=== PATIENT | female | born 1990 | race Caucasian/White ===

== ENCOUNTER → 2020-03-10 11:12 | Outpatient (BNVA) | payer OTHER, SELFPAY | PROVIDERS: Family Provider Nurse Practitioner Family; PCP Nurse Practitioner Family; Visit Provider Nurse Practitioner Family | DX: Z20.828 Contact with and (suspected) exposure to other viral communicable diseases (principal) | CPT/HCPCS: 87635 ==

== ENCOUNTER 2021-01-18 18:28 | Emergency (ER) | payer SELFPAY ==
[2021-01-18 18:32] VITALS: BP 161/99; PULSE 85; RESP 24; TEMP 36.7; O2SAT 100; BMI 47.5
--- NOTE | 2021-01-18 18:36 | W.ED.ABDPA2 ---
Documented by User: [email or web address] 01/18/21 20:59 HPI - Abdominal Pain General: Chief Complaint: Abdominal Pain Stated Complaint: Sever ABD Pain Time Seen by Provider: 01/18/21 18:36 History of Present Illness: HPI narrative: 30-year-old female comes in today with pain to the left flank starting yesterday. Patient reports no injury but does do a lot of lifting at her job. Patient does report a history of renal calculi. Patient appears well. Patient appears in moderate pain. Patient reports being on her menstrual cycle at this time, denies any fever, denies any nausea or vomiting. Related Data: Date of Last Menstrual Period: 01/18/21 Review of Systems General: Reports: 10 or more systems reviewed and unremarkable except in HPI and below : Reports: flank pain [facility] ED Female Reproductive History: Date of last menstrual period: 01/18/21 Physical Exam Const: COMMON NORMALS: no acute distress and patient oriented x3 GENERAL APPEARANCE: cooperative HENMT: COMMON NORMALS: normocephalic and Normal external nose present HEAD & SCALP: normal to inspection and normocephalic NOSE: Normal external nose present MOUTH: Normal oral and palatal mucosa present Eye: GENERAL EYE: appearance normal, both eyes and all related structures Neck/C-Spine: COMMON NORMALS: full ROM Chest: COMMONS NORMALS: normal inspection of the chest Resp: COMMON NORMALS: normal respiratory effort EFFORT & INSPECTION: Yes able to speak in complete sentences Cardio: COMMON NORMALS: regular rate and regular rhythm RATE: regular rate RHYTHM: regular rhythm GI: COMMON NORMALS: non-tender : BLADDER/KIDNEY EXAM: Yes CVA tenderness on the left Back/Pelvis: GENERAL BACK: Yes CVA tenderness THORACIC SPINE/UPPER BACK: Yes normal to inspection LUMBAR SPINE/LOWER BACK: Yes paraspinal muscle tenderness Lumbar paraspinal muscle tenderness: left left lumbar paraspinal muscle tenderness: L2 and L3 Extremity: COMMON NORMALS: normal to inspection Neuro: COMMON NORMALS: patient oriented x3 and moves all extremities Psych: COMMON NORMALS: mental status grossly normal and cooperative Skin: COMMON NORMALS: no rashes or lesions noted GENERAL SKIN EXAM: no rashes or lesions noted Course Vital Signs: Vital signs: Vital Signs Temperature 98.1 F 01/18/21 18:32 Pulse Rate 74 01/18/21 21:28 Respiratory Rate 20 H 01/18/21 21:28 Blood Pressure 126/76 01/18/21 21:28 Pulse Oximetry 99 01/18/21 21:28 MDM - Abdominal Pain MDM Narrative: Medical decision making narrative: Patient comes in with left flank pain and history of renal stones. Patient reports pain started yesterday. On exam patient has some left CVA tenderness. And some muscle tenderness in the left lower paraspinous area. Abdomen soft nontender. Vital signs were normal except for some elevation in blood pressure. Differential diagnosis includes but not limited to lumbar strain, renal calculi, UTI. Urinalysis was grossly contaminated due to patient's menstrual cycle with blood, skin cells and white blood cells. CMP was unremarkable. CT of the abdomen pelvis indicated a 3 mm stone in the left distal ureter with minimal hydronephrosis. We were able to get patient's pain under control with morphine total of 8 mg and 50 mcg of fentanyl. Patient was given a 500 mL bolus of saline. Reviewed exam with patient with recommendations for monitoring for fever and to follow-up with urologist. Patient reported understanding and agreed to plan. Lab Data: Labs: Lab Results 01/18/21 01/18/21 01/18/21 18:54 19:51 19:51 Sodium 136 mmol/L mmol/L (136-145) Potassium 4.0 mmol/L mmol/L (3.5-5.1) Chloride 103 mmol/L mmol/L (98-107) Carbon Dioxide 22 mmol/L mmol/L (22-29) Anion Gap 15.0 (5-19) BUN 13 mg/dL mg/dL (6-20) Creatinine 0.6 mg/dL mg/dL (0.5-0.9) GFR Calculation 115.9 mL/min mL/m in (90-130) Glucose 104 mg/dL mg/dL (65-115) Calculated Osmolal ity 282 mOsm/kg L mOs m/kg (285-295) Calcium 8.1 mg/dL L mg/dL (8.5-10.5) Total Bilirubin 0.2 mg/dL mg/dL (0.15-1.2) AST 10 U/L U/L (0-32) ALT 7 U/L U/L (0-33) Alkaline Phosphata se 86 IU/L IU/L (35-105) Total Protein 7.0 g/dL g/dL (6.6-8.7) Albumin 3.7 g/dL g/dL (3.5-5.2) Globulin 3.3 g/dL g/dL (1.3-4.6) Lipase 24 U/L U/L (13-60) HCG, Qual Negative (Negative) Urine Color Yellow (Yellow) Urine Appearance Sl cloudy A (CLEAR) Urine pH 5 (5-7) Ur Specific Gravit y 1.030 (1.005-1.030) Urine Protein 1+ H (Negative) Urine Glucose (UA) Norm (Normal) Urine Ketones 1+ H (Negative) Urine Blood 3+ H (Negative) Urine Nitrate Negative (Negative) Urine Bilirubin 1+ H (Negative) Urine Urobilinogen 4 mg/dL H mg/dL (Negative) Ur Leukocyte Martha ase Trace H (Negative) Urine RBC 25-40 /hpf H /hpf (0-2) Urine WBC 80-100 /hpf H /hp f (0-5) Ur Squamous Epith Cells 55-80 /hpf H /hpf (0-5) Calcium Oxalate Cr ystal 5-10 /hpf H /hpf Amorphous Sediment Not Reportable Urine Bacteria 4+ /hpf H /hpf (NONE) Discharge Plan Discharge Patient Disposition: Home Clinical Impression: Left ureteral calculus Condition: Stable Prescriptions: New hydrocodone-acetaminophen 5-325 mg tablet 1 tab PO Q6H PRN (Reason: pain (scale score 7-10)) Qty: 14 RF: 0 ondansetron 4 mg tablet,disintegrating 4 mg PO Q8H PRN (Reason: nausea and vomiting) Qty: 7 RF: 0 Discharge Orders: Discharge ED (Routine); Ordered 01/18/21 Ordered By: Quan Lucio Referrals: Wilberto Floyd FNP [Primary Care Provider] - Discharge Diet: Usual diet Discharge Activity: Increase activity as tolerated Patient Instructions: Kidney Stones (ED), Opioid Safety Activity Restrictions/Additional Instructions: Home and rest. Medications as directed. Follow-up with urologist for further treatment. Case management will contact you regarding a follow-up appointment with the urologist. Return to the ER for high fever greater than 100.4, persistent vomiting and inability to hold down fluids, or uncontrolled pain. Coding Level of Care Code ED Screw Machine Hand for Chg Fwd Exam Comprehensive Documented by User: Lalo Horton DO Marco 01/18/21 23:37 HPI - Abdominal Pain General: Chief Complaint: Abdominal Pain Stated Complaint: Sever ABD Pain Time Seen by Provider: 01/18/21 18:36 Course Vital Signs: Vital signs: Vital Signs Temperature 98.1 F 01/18/21 18:32 Pulse Rate 74 01/18/21 21:28 Respiratory Rate 20 H 01/18/21 21:28 Blood Pressure 126/76 01/18/21 21:28 Pulse Oximetry 99 01/18/21 21:28 MDM - Abdominal Pain Lab Data: Labs: Lab Results 01/18/21 01/18/21 01/18/21 18:54 19:51 19:51 Sodium 136 mmol/L mmol/L (136-145) Potassium 4.0 mmol/L mmol/L (3.5-5.1) Chloride 103 mmol/L mmol/L (98-107) Carbon Dioxide 22 mmol/L mmol/L (22-29) Anion Gap 15.0 (5-19) BUN 13 mg/dL mg/dL (6-20) Creatinine 0.6 mg/dL mg/dL (0.5-0.9) GFR Calculation 115.9 mL/min mL/m in (90-130) Glucose 104 mg/dL mg/dL (65-115) Calculated Osmolal ity 282 mOsm/kg L mOs m/kg (285-295) Calcium 8.1 mg/dL L mg/dL (8.5-10.5) Total Bilirubin 0.2 mg/dL mg/dL (0.15-1.2) AST 10 U/L U/L (0-32) ALT 7 U/L U/L (0-33) Alkaline Phosphata se 86 IU/L IU/L (35-105) Total Protein 7.0 g/dL g/dL (6.6-8.7) Albumin 3.7 g/dL g/dL (3.5-5.2) Globulin 3.3 g/dL g/dL (1.3-4.6) Lipase 24 U/L U/L (13-60) HCG, Qual Negative (Negative) Urine Color Yellow (Yellow) Urine Appearance Sl cloudy A (CLEAR) Urine pH 5 (5-7) Ur Specific Gravit y 1.030 (1.005-1.030) Urine Protein 1+ H (Negative) Urine Glucose (UA) Norm (Normal) Urine Ketones 1+ H (Negative) Urine Blood 3+ H (Negative) Urine Nitrate Negative (Negative) Urine Bilirubin 1+ H (Negative) Urine Urobilinogen 4 mg/dL H mg/dL (Negative) Ur Leukocyte Martha ase Trace H (Negative) Urine RBC 25-40 /hpf H /hpf (0-2) Urine WBC 80-100 /hpf H /hp f (0-5) Ur Squamous Epith Cells 55-80 /hpf H /hpf (0-5) Calcium Oxalate Cr ystal 5-10 /hpf H /hpf Amorphous Sediment Not Reportable Urine Bacteria 4+ /hpf H /hpf (NONE) Discharge Plan Discharge Patient Disposition: Home Clinical Impression: Left ureteral calculus Condition: Stable Prescriptions: New hydrocodone-acetaminophen 5-325 mg tablet 1 tab PO Q6H PRN (Reason: pain (scale score 7-10)) Qty: 14 RF: 0 ondansetron 4 mg tablet,disintegrating 4 mg PO Q8H PRN (Reason: nausea and vomiting) Qty: 7 RF: 0 Discharge Orders: Discharge ED (Routine); Ordered 01/18/21 Ordered By: Quan Lucio Referrals: Wilberto Floyd FNP [Primary Care Provider] - Discharge Diet: Usual diet Discharge Activity: Increase activity as tolerated Patient Instructions: Kidney Stones (ED), Opioid Safety Activity Restrictions/Additional Instructions: Home and rest. Medications as directed. Follow-up with urologist for further treatment. Case management will contact you regarding a follow-up appointment with the urologist. Return to the ER for high fever greater than 100.4, persistent vomiting and inability to hold down fluids, or uncontrolled pain. Coding Level of Care Code ED Screw Machine Hand for Kitg Fwd Exam Comprehensive
--- NOTE | 2021-01-18 18:45 | CTR_ITS ---
PROCEDURE INFORMATION: Exam: CT Abdomen And Pelvis Without Contrast Exam date and time: 01/18/2021 6:45 PM Age: 30 years old Clinical indication: Abdominal pain; Left; Patient HX: C/O sudden onset L flank pain; Additional info: Left flank pain, TECHNIQUE: Imaging protocol: Computed tomography of the abdomen and pelvis without contrast. Radiation optimization: All CT scans at this facility use at least one of these dose optimization techniques: automated exposure control; mA and/or kV adjustment per patient size (includes targeted exams where dose is matched to clinical indication); or iterative reconstruction. COMPARISON: No relevant prior studies available. RADIATION DOSE METRICS: Total DLP (mGy-cm): 1865.21 FINDINGS: Liver: Normal. No mass. Gallbladder and bile ducts: Normal. No calcified stones. No ductal dilation. Pancreas: Normal. No ductal dilation. Spleen: Normal. No splenomegaly. Adrenal glands: Normal. No mass. Kidneys and ureters: Left distal ureter 3.4 mm calculus with mild hydronephrosis and hydroureter. Stomach and bowel: Unremarkable. No obstruction. No mucosal thickening. Appendix: No evidence of appendicitis. Intraperitoneal space: Unremarkable. No free air. No significant fluid collection. Vasculature: Unremarkable. No abdominal aortic aneurysm. Lymph nodes: Unremarkable. No enlarged lymph nodes. Urinary bladder: Unremarkable as visualized. Reproductive: Unremarkable as visualized. Bones/joints: Unremarkable. No acute fracture. Soft tissues: Unremarkable. CT/CT kidney stone [id number] IMPRESSION: Left distal ureter 3.4 mm calculus with mild hydronephrosis and hydroureter. Radiation Dose CTDIVOL = (mGy): DLP = 1865.21 (mGy-cm)
[2021-01-18] MEDS: ondansetron 2 mg/ML SDV 2 mL 4 MG IVP (19:00)
[2021-01-18] MEDS: ketorolac 30 mg/mL INJ 15 MG IVP (19:00)
[2021-01-18] MEDS: morphine 4 mg/mL SDV 1 mL IVP ×2 (19:01→19:53)
[2021-01-18 19:05] VITALS: BP 151/84; PULSE 57; O2SAT 99
[2021-01-18 19:44] LABS: Urine Color Yellow (Yellow); pH Urine 5 (5-7)
[2021-01-18 19:45] LABS: Add Urine Microscopic? YES; Bilirubin Urine 1+ (Negative); Blood Urine 3+ (Negative); Glucose Urine UA Norm (Normal); Ketones Urine 1+ (Negative); Leukocyte Esterase Urine Trace (Negative); Nitrate Urine Negative (Negative); Protein Urine 1+ (Negative); Urobilinogen Urine 4 mg/dL (Negative)
[2021-01-18 19:49] LABS: Bacteria Urine 4+ /hpf; RBC Urine 25-40 /hpf (0-2); Squamous Epithelial Cell Urine 55-80 /hpf (0-5); WBC Urine 80-100 /hpf (0-5)
[2021-01-18 19:50] LABS: Add Urine Culture? No
[2021-01-18] MEDS: sodium chloride 0.9% 1,000 ML 999 ML IV (19:50)
[2021-01-18 19:53] VITALS: RESP 22; O2SAT 100
[2021-01-18 20:12] LABS: Alanine Aminotransferase 7 U/L (0-33); Albumin Level 3.7 g/dL (3.5-5.2); Alkaline Phosphatase 86 IU/L (35-105); Aspartate Amino Transferase 10 U/L (0-32); Blood Urea Nitrogen 13 mg/dL (6-20); Calcium 8.1 mg/dL (8.5-10.5); Carbon Dioxide 22 mmol/L (22-29); Chloride 103 mmol/L (98-107); Globulin 3.3 g/dL (1.3-4.6); Glomerular Filtration Rate 115.9 mL/min (90-130); Glucose 104 mg/dL (65-115); Lipase 24 U/L (13-60); Osmolality Calculated 282 mOsm/kg (285-295); Sodium 136 mmol/L (136-145); Total Bilirubin 0.2 mg/dL (0.15-1.2)
[2021-01-18 20:14] LABS: HCG, Serum Qual Negative (Negative)
[2021-01-18 20:30] VITALS: BP 126/84; PULSE 74; RESP 20; O2SAT 99
[2021-01-18 20:40] VITALS: RESP 22; O2SAT 99
[2021-01-18] MEDS: fentaNYL 50 mcg/mL INJ 2mL IVP (20:40)
[2021-01-18] MEDS: HYDROcodone-acetaminophen 10-325 mg Tablet 1 TAB PO (21:26)
[2021-01-18 21:28] VITALS: BP 126/76; PULSE 74; RESP 20; O2SAT 99
--- NOTE | 2021-01-19 10:13 | DCPLANNER ---
Addendum entered by Theresa Enriquez 01/19/21 10:16: this was noted on wrong patient. Original Note: marketing development manager had message to schedule a follow up appointment for patient with ortho. marketing development manager called the ortho clinic, spoke with Mari, gave clinic patients information. marketing development manager was told that patients information would be printed and reviewed. Clinic will call patient with appointment information.
--- NOTE | 2021-01-19 11:21 | DCPLANNER ---
merchandising manager had message to schedule a follow up appointment for patient with Dr. Delgado. merchandising manager called the office of Dr. Delgado, spoke with Cait, gave clinic patients information. merchandising manager was told that patients information would be printed and reviewed. Clinic will call patient with appointment information.
--- NOTE | 2021-01-21 13:24 | DCPLANNER ---
Patient had a follow up appointment scheduled for 01.20.[address] Delgado - patient did attend appointment.
== END 2021-01-18 21:20 | disposition home or self-care (01) ==
PROVIDERS: Emergency Provider Nurse Practitioner Family; PCP Nurse Practitioner Family
DX: N20.1 Calculus of ureter (principal)
CPT/HCPCS: 74176; 80053; 81001; 83690; 84703; 85025; 96361; 96374; 96375; 96376; 99284; J1885; J2270; J2405; J3010; J7030

== ENCOUNTER 2021-01-20 14:10 | Outpatient (CLI) | payer SELFPAY ==
--- NOTE | 2021-01-20 14:00 | XR_ITS ---
WS: [id number] Exam: XR KUB [id number] Date/Time of Exam: 01/20/2021 2:17 PM Reason For Exam: stone No sign of bowel obstruction or free air. No calcifications noted in the region of the kidneys. No si gn of organ enlargement. Bony elements are intact. XR/XR KUB [id number] IMPRESSION: 1. Unremarkable KUB.
== END 2021-01-20 14:11 | disposition home or self-care (01) ==
PROVIDERS: PCP Nurse Practitioner Family; Visit Provider Urology
DX: N20.1 Calculus of ureter (principal)
CPT/HCPCS: 74018; 81003

== ENCOUNTER → 2022-06-21 09:00 | Outpatient (BNVA) | payer BC, MEDICAID, SELFPAY | PROVIDERS: PCP Nurse Practitioner Family; Visit Provider Podiatrist Foot & Ankle Surgery | DX: M79.671 Pain in right foot (principal); M79.672 Pain in left foot | CPT/HCPCS: 73630 ==